=== PATIENT | male | born 1980 | race Caucasian/White ===

== ENCOUNTER 2016-11-29 09:58 | Inpatient (IN) ==
[2016-11-25 16:01] LABS: Appearance,Urine CLEAR; Bilirubin,Urine NEG (NEG); Color,Urine YELLOW; Glucose,Urine (UA) NEGATIVE (NEG); Leukocyte Esterase,Urine NEG /uL (NEG); Nitrate,Urine NEG (NEG); Protein,Urine NEG (NEG); Specific Gravity,Urine 1.016 (1.000-1.035); Urine Blood NEG mg/dL (<0.03); Urobilinogen,Urine NEG (NEG)
[2016-11-25 17:04] LABS: Basophils # (Auto) 0 K/mcL (0.0-0.3); Basophils % (Auto) 0.3 % (0.0-2.0); Eosinophils # (Auto) 0.1 K/mcL (0.0-0.7); Eosinophils % (Auto) 2.1 % (0.0-7.0); Granulocytes % (Auto) 73.1 % (38.0-78.0); Lymphocytes # (Auto) 1.1 K/mcL (1.5-4.8); Lymphocytes % (Auto) 18.5 % (15.5-49.0); Mean Cell Volume 87.6 fL (80.0-100.0); Mean Corpuscular HGB Conc 33.2 g/dL (31.0-36.0); Monocytes # (Auto) 0.4 K/mcL (0.1-0.9); Platelet Count 161 K/mcL (140-440); RBC 4.92 M/mcL (4.50-5.90); Red Cell Distribution Width 13.2 % (11.5-14.5)
[2016-11-25 17:29] LABS: Blood Urea Nitrogen 15 mg/dl (6-20)
[~2016-11-29 09:58] MED LIST: ACETAMINOPHEN 500 MG TABLET PO SCH; CELECOXIB 200 MG CAPSULE PO SCH; KETOROLAC 30 MG, ROPIVACAINE HCL/PF 49.5 ML, EPINEPHrine 0.5 MG, 0.9 % SODIUM CHLORIDE ... IJ ONE; PREGABALIN 150 MG CAPSULE PO SCH; ceFAZolin 1 GM VIAL IV SCH; oxyCODONE 10 MG TAB.ER.12H PO SCH
[2016-11-29] MEDS ORDERED: fentaNYL 100 MCG/2 ML VIAL IV ONE (14:00)
[2016-11-29] MEDS ORDERED: ROPIVACAINE HCL/PF 30 ML VIAL IJ ONE (14:00)
[2016-11-29] MEDS ORDERED: ONDANSETRON 4 MG/2 ML VIAL IV ONE (14:00)
[2016-11-29] MEDS ORDERED: LIDOCAINE HCL/PF 100 MG/5 ML SYRINGE IV ONE (14:00)
[2016-11-29] MEDS ORDERED: DEXAMETHASONE 10 MG/ML VIAL IV ONE (14:00)
[2016-11-29] MEDS ORDERED: PROPOFOL 200 MG/20 ML VIAL IV ONE (14:00)
[2016-11-29] MEDS ORDERED: MIDAZOLAM 5 MG/5 ML VIAL IV ONE (14:00)
[2016-11-29] MEDS ORDERED: TRANEXAMIC ACID 1,000 MG/10 ML VIAL IV ONE (14:00)
[2016-11-29] MEDS ORDERED: ACETAMINOPHEN 325 MG TABLET PO PRN (14:06)
[2016-11-29] MEDS ORDERED: ONDANSETRON 4 MG/2 ML VIAL IV PRN ×2 (14:06→15:23)
[2016-11-29] MEDS ORDERED: MAGNESIUM HYDROXIDE 30 ML ORAL.SUSP PO PRN (14:06)
[2016-11-29] MEDS ORDERED: POLYETHYLENE GLYCOL 3350 17 GM PACKET PO PRN (14:06)
[2016-11-29] MEDS ORDERED: FLEETS ADULT ENEMA PR PRN (14:06)
[2016-11-29] MEDS ORDERED: BENZOCAINE/MENTHOL 1 LOZENGE PO PRN ×2 (14:06→15:23)
[2016-11-29] MEDS ORDERED: TRANEXAMIC ACID 1,000 MG/10 ML VIAL IV SCH (14:06)
[2016-11-29] MEDS ORDERED: BISACODYL 10 MG SUPP.RECT PR PRN (14:06)
[2016-11-29] MEDS ORDERED: GENTAMICIN SULFATE 800 MG/20 ML VIAL IR ONE (15:05)
[2016-11-29] MEDS ORDERED: MEPERIDINE 25 MG/ML SYRINGE IV PRN (15:23)
[2016-11-29] MEDS ORDERED: FLUMAZENIL 0.1 MG/ML ML IV PRN (15:23)
[2016-11-29] MEDS ORDERED: IPRATROPIUM/ALBUTEROL 3 ML AMPUL.NEB NEB PRN (15:23)
[2016-11-29] MEDS ORDERED: PROMETHAZINE 25 MG/ML VIAL IM ONE (15:23)
[2016-11-29] MEDS ORDERED: METOPROLOL TARTRATE 5 MG/5 ML VIAL IV PRN (15:23)
[2016-11-29] MEDS ORDERED: HYDROmorphone 2 MG/ML SYRINGE IV PRN (15:23)
[2016-11-29] MEDS ORDERED: ATROPINE SULFATE 0.4 MG/ML VIAL IV PRN (15:23)
[2016-11-29] MEDS ORDERED: METHOCARBAMOL 1,000 MG/10 ML VIAL IV PRN (15:23)
[2016-11-29] MEDS ORDERED: MEPERIDINE 50 MG/ML SYRINGE IM ONE (15:23)
[2016-11-29] MEDS ORDERED: diphenhydrAMINE 50 MG/ML VIAL IV PRN (15:23)
[2016-11-29] MEDS ORDERED: ePHEDrine 50 MG/ML AMPUL IV PRN (15:23)
[2016-11-29] MEDS ORDERED: PROMETHAZINE 25 MG/ML VIAL IV PRN (15:23)
[2016-11-29] MEDS ORDERED: NALOXONE HCL 0.4 MG/ML VIAL IV PRN (15:23)
[2016-11-29] MEDS ORDERED: LACTATED RINGERS 1,000 ML IV SCH (15:30)
--- NOTE | 2016-11-29 15:59 | Brief Operative Note ---
Date of procedure: 11/29/16 Pre-op diagnosis: left knee djd and stress fracature Post-op diagnosis: same Procedure: left knee revison both components Grafts/Implants: Yes Anesthesia: GETA Findings: intact partial tka medial with synovitis with bloody effusion Complications: none Surgeon: Daniel Guerrero Director Emergency Services: Emir Hurtado (\) Estimated blood loss (cc): 20 Tourniquet Time (Minutes): 63 Specimens Removed/Pathology: none sent Condition: stable Disposition: PACU
--- NOTE | 2016-11-29 16:27 | Operative Note ---
DATE OF OPERATION: 11/29/2016 PREOPERATIVE DIAGNOSIS: A 36-year-old with left knee degenerative arthritis who had a failed partial knee implant secondary to arthritis, possible stress fracture. POSTOPERATIVE DIAGNOSIS: A 36-year-old with left knee degenerative arthritis who had a failed partial knee implant secondary to arthritis, possible stress fracture. PROCEDURE: Left knee complete revision of the femoral and tibial partial knee components and conversion to a total knee arthroplasty using a stemmed implant on the tibia. SURGEON: Daniel Guerrero MD. CHROME PLATER HELPER: Emir Hurtado PA-C. ANESTHESIA: General LMA anesthesia. COMPLICATIONS: None. TOTAL TOURNIQUET TIME: 63 minutes. DESCRIPTION OF PROCEDURE: The patient was brought to the operating room and put to sleep with general LMA anesthesia. The leg was confirmed as the operative site. Preop antibiotics were given. Tranexamic acid was given. We then inflated the tourniquet to 250 pounds of pressure. Midline incision was made, mid vastus approach exposing the joint to see if there was any loose component. The component appeared to be stable with some bloody effusion. We then removed both the tibial and femoral component without significant bone loss, and the poly was removed. Cement was completely intact on the femoral component, and the tibia was able to be removed with debonding of the poly from the cement. We irrigated thoroughly. We then registered the robot with two pins above and below the knee. We registered the center of hip rotation, medial and lateral malleoli. We registered 30 points on the femur, 30 points on the tibia, balanced the knee. We adjusted the position of the implants to completely balance the knee. We irrigated thoroughly. We then irrigated and brought the robot in and registered the robot. We then made our anterior and posterior chamfer cuts, anterior and posterior cuts, and distal femoral cut was made. Tibial cut was made using the robot as well. The intraarticular pins were registered each time prior to these cuts. We then removed the bony fragments. We removed any remaining spurs and debris. We removed the remnants of the meniscus laterally, released the ACL. Once the trials were placed, rotation set by the robot for the tibial component. We then trialed the femur and the tibia. This seemed to fit very nicely and balanced nicely with an 11 poly insert. Once this was done, we then irrigated thoroughly, prepared the patella. It measured a total thickness of 30 mm. This was cut to 20 mm, and we placed and eccentric 35 mm patellar component with a small chamfer cut. We irrigated thoroughly and cemented into place the above-mentioned sizes. The knee seemed to be very well-balanced. Excess cement was removed. We thoroughly irrigated the knee once more and closed the mid vastus approach with #2 FiberWire and a double-armed #1 Maxon. We closed the skin with 2-0 Vicryl and adhesive closure. The incisions for the portals were closed using 2-0 Vicryl and a sterile bandage. The patient tolerated this well. Tourniquet time was approximately 63 minutes. RBH:michel Job ID: [id number] Doc ID: [id number] Daniel Guerrero MD
--- NOTE | 2016-11-29 17:00 | XRay Report ---
CLINICAL INFORMATION: Post-Op Total Knee COMPARISON: None. FINDINGS: Total knee prostheses is in anatomic alignment. No osseous abnormality. Soft tissues swelling seen as expected IMPRESSION: Normal Interpreted and Authenticated by: Aayush Downs 11/29/16
[2016-11-29] MEDS: fentaNYL 100 MCG/2 ML VIAL IV PRN ×3 (17:25→17:35)
[2016-11-29] MEDS: HYDROmorphone 2 MG/ML SYRINGE IV PRN ×3 (18:40→21:01)
[2016-11-29] MEDS: KETOROLAC 15 MG/ML VIAL IV SCH ×2 (18:40→23:09)
[2016-11-29] MEDS: 0.45 % SODIUM CHLORIDE 1,000 ML IV SCH ×2 (18:58→20:35)
[2016-11-29] MEDS: HYDROcodone/APAP 10/325MG TABLET PO PRN ×2 (19:03→23:09)
[2016-11-29] MEDS: DOCUSATE SODIUM 100 MG CAPSULE PO SCH (20:32)
[2016-11-29] MEDS: oxyCODONE 10 MG TAB.ER.12H PO SCH (20:33)
[2016-11-29] MEDS: ASPIRIN 325 MG ENTERIC COATED TABLET PO SCH (20:33)
[2016-11-29] MEDS: 0.9 % SODIUM CHLORIDE 10 ML SYRINGE IV SCH (20:35)
[2016-11-29] MEDS ORDERED: TEMAZEPAM 15 MG CAPSULE PO PRN (21:00)
[2016-11-29] MEDS ORDERED: SENNOSIDES 1 TABLET PO SCH (21:00)
[2016-11-29] MEDS: ceFAZolin 1 GM VIAL IV SCH (23:09)
[2016-11-30] MEDS: HYDROcodone/APAP 10/325MG TABLET PO PRN (02:30)
[2016-11-30] MEDS: HYDROmorphone 2 MG/ML SYRINGE IV PRN ×2 (04:08→08:11)
[2016-11-30] MEDS: KETOROLAC 15 MG/ML VIAL IV SCH ×2 (05:56→11:34)
[2016-11-30] MEDS: 0.45 % SODIUM CHLORIDE 1,000 ML IV SCH (06:11)
[2016-11-30] MEDS: 0.9 % SODIUM CHLORIDE 10 ML SYRINGE IV SCH (06:11)
[2016-11-30] MEDS: ceFAZolin 1 GM VIAL IV SCH (06:54)
--- NOTE | 2016-11-30 07:48 | Orthopedic Progress Note ---
Subjective Patient information: Note initiated : 11/30/16 at 7:47 am Service Date, if different from initiated Date: [] Patient: Joseph Wheat 36 y/o M admitted on 11/29/16 for Left MYRTLE Total Knee Arthroplasty Convert from . Chief Complaint: [Pt is stable this morning on post operative day 1 without any significant concerns or complaints. Patients vital signs have remained stable. Patients dressing is dry and exhibits a grossly intact neurovascular and neuromotor exam. Patients 10 point ROS is otherwise negative. ] Objective Vital signs: Vital Signs Temp Pulse Pulse Pulse Resp BP BP 11/30/16 07:45 95 H 11/30/16 06:38 98.3 F 16 116/76 11/30/16 04:00 98.1 F 94 H 12 113/73 11/30/16 03:00 11/29/16 23:19 11/29/16 23:09 98.5 F 91 H 12 115/74 11/29/16 22:30 11/29/16 20:30 96 H 110/75 11/29/16 20:00 11/29/16 19:30 104 H 130/90 11/29/16 19:00 88 138/90 11/29/16 18:30 95 H 11/29/16 18:15 89 128/85 11/29/16 18:00 87 124/86 11/29/16 17:45 96.7 F L 89 109/77 11/29/16 17:19 98.2 F 86 14 126/81 11/29/16 17:06 79 16 125/66 11/29/16 16:53 83 16 119/72 11/29/16 16:39 78 20 119/67 11/29/16 16:24 98.0 F 85 16 116/52 11/29/16 10:59 98.5 F 73 16 116/80 Pulse Ox 11/30/16 07:45 98 11/30/16 06:38 95 11/30/16 04:00 98 11/30/16 03:00 96 11/29/16 23:19 98 11/29/16 23:09 95 11/29/16 22:30 93 11/29/16 20:30 96 11/29/16 20:00 100 11/29/16 19:30 100 11/29/16 19:00 94 11/29/16 18:30 100 11/29/16 18:15 100 11/29/16 18:00 100 11/29/16 17:45 100 11/29/16 17:19 100 11/29/16 17:06 100 11/29/16 16:53 100 11/29/16 16:39 98 11/29/16 16:24 98 11/29/16 10:59 97 Intake and Output 11/29/16 11/30/16 11/30/16 21:59 05:59 13:59 Intake Total 2400 / 2400 620 / 620 Output Total 475 / 475 925 / 925 Balance 1924 -305 / -305 Intake: Oral 300 / 300 620 / 620 IV - Manual Only 2099 / 2099 Output: Void Amount 400 / 400 925 / 925 Estimated Blood Loss 75 / 75 Other: Meal Dinner Percent of Meal Consumed 100% Feeding Ability Independent # Voids 1 Weight 217 lb Intake & Output: Intake & Output 11/29/16 11/30/16 11/30/16 21:59 05:59 13:59 Intake Total 2400 / 2400 620 / 620 Output Total 475 / 475 925 / 925 Balance 1924 -305 / -305 Weight 217 lb Intake: Oral 300 / 300 620 / 620 IV - Manual Only 2099 / 2099 Output: Void Amount 400 / 400 925 / 925 Estimated Blood Loss 75 / 75 Other: Meal Dinner Percent of Meal Consumed 100% Feeding Ability Independent # Voids 1 Incision: Yes healing Incision clean and dry: Yes Dressing: Yes clean Weight bearing status: full Neurological exam IM: Yes motor sensory intact, Yes neurovascular intact Extremities exam IM: Yes Foot pink and warm, Yes neurovascular intact - Labs CBC & BMP: 11/30/16 04:59 11/25/16 13:42 Labs: Orthopedic Labs 11/25/16 13:42 PT 13.2 INR 1.0 APTT 28 11/30/16 11/25/16 04:59 13:42 Hgb 14.3 Hct 39.0 L 43.1 Assessment and Plan (1) History of total knee arthroplasty Patient has been educated regarding wound care and dressings, follow up recommendations, and medication use. We will f/u with the patient within 2-3 weeks for wound check. Status: Acute
--- NOTE | 2016-11-30 07:51 | Discharge Summary ---
Ortho Discharge - TKA - Patient Instructions Diet: Regular Diet Activity: activity as tolerated, weight bearing as tolerated Total Knee Protocol: For Total Knee: Start ROM NATALI with stationary bike or rocking chair. Work on gaining full extension of knee. Posterior dislocation precautions provided. Hip abductor strengthening and gait training instructions provided. Apply Cryocuff as instructed. Dressing Care: May shower in 2 days Additional Instructions: CPM for home use Discharge Instructions: Do the exercises at home that physical therapy gave you. Take your prescription, photo ID, insurance cards, and current medication list with you to your first physical therapy appointment. Take your prescription to turkey picker any medication or equipment (such as walker, crutches, toilet riser or C.P.M.) Wear comfortable clothing for your physical therapy. Weight bearing as tolerated. If you have the Aquacel Ag dressing, leave in place for 7 days then remove. If dressing becomes soiled (turns black), remove and use gauze 4x4 dressing and silvasorb ointment and change daily. Keep incision clean and dry. If you have Dermabond (a dressing with a mesh-like appearance), leave open to air. You may start showering on post op day #2. The Dermabond dressing can get wet, do not scrub dressing. Pat dry. To avoid constipation while taking any narcotic pain medication, take an over the counter stool softener/laxative. Use your Cryocuff or ice packs as directed, on for 20 minutes at a time throughout the day. This and elevation will help with pain and swelling. Call your physician for fevers above 100.5 or pain not controlled by medication. Your prescriptions are with your discharge information. Some medications were electronically transmitted to your pharmacy of choice. - Problem Maintenance (1) History of total knee arthroplasty Status: Acute - Follow Up Plan Follow Up Appointments: Daniel Guerrero MD [Physician] - 12/14/16 10:10 am Disposition: Home, Self-Care Prognosis: Good Rehab Potential: Good I certify that the patient requires SNF services: No Overall status at discharge: patient is progressing back to baseline - Orders For Discharge Prescriptions: Docusate Sodium [Colace] 100 mg PO BID #60 capsule oxyCODONE [Oxycontin] 20 mg PO BID #30 tab.er.12h oxyCODONE HCL/ACETAMINOPHEN [Percocet 10-325 mg Tablet] 1 - 2 tab PO Q4 #75 tablet
[2016-11-30] MEDS: oxyCODONE 10 MG TAB.ER.12H PO SCH (08:12)
[2016-11-30] MEDS ORDERED: oxyCODONE/APAP 10/325MG TABLET PO PRN (08:22)
[2016-11-30] MEDS: ASPIRIN 325 MG ENTERIC COATED TABLET PO SCH (08:52)
[2016-11-30] MEDS: DOCUSATE SODIUM 100 MG CAPSULE PO SCH (08:53)
== END 2016-11-30 12:20 | disposition home or self-care (01) | DRG 468 ==
LOC: MEDSUR 09:58
PROVIDERS: ADMIT Orthopaedic Surgery; ATTEND Orthopaedic Surgery